=== PATIENT | female | born 1970 | race Caucasian/White ===

== ENCOUNTER 2022-08-17 06:58 | Outpatient (RCR) | payer BC | END 2022-08-26 | LOC: PT 06:58 | PROVIDERS: ATTEND Physician Assistant | DX: M22.42 Chondromalacia patellae, left knee (principal) ==

== ENCOUNTER 2022-08-28 08:41 | Outpatient (RCR) | payer BC | END 2022-09-25 | LOC: PT 08:41 | PROVIDERS: ATTEND Physician Assistant | DX: M22.42 Chondromalacia patellae, left knee (principal) ==